=== PATIENT | male | born 1990 | race Hispanic/Latino ===

== ENCOUNTER 2022-04-26 12:27 | Emergency (ER) | payer OTHER ==
[~2022-04-26] VITALS: Ht 154.9 cm; Wt 99.8 kg
[2022-04-26] MEDS ORDERED: CLONIDINE HCL 0.2 MG TAB PO ONE (13:15)
[2022-04-26] MEDS ORDERED: TENORMIN25 MG PO (13:46)
[2022-04-26] MEDS ORDERED: LOSARTAN POTASS25 MG PO (13:46)
[2022-04-26] MEDS ORDERED: CLONIDINE HCL 0.1 MG TAB ONE (13:58)
== END 2022-04-26 14:45 | disposition home or self-care (01) ==
LOC: FSED 12:48
DX: R42 Dizziness and giddiness (principal); I16.0 Hypertensive urgency; J06.9 Acute upper respiratory infection, unspecified; I10 Essential (primary) hypertension
CPT/HCPCS: 70450; 93005; 99284